=== PATIENT | female | born 1995 | race Caucasian/White ===

== ENCOUNTER 2018-02-07 16:38 | Emergency (ER) | payer OTHER ==
[2018-02-07 17:05] VITALS: BP 135/78
--- NOTE | 2018-02-07 17:13 | ED ---
Lower Extremity - HPI Summary HPI Summary: 22 yr old with left patella pain. Onset today when her 3 year old sat on her crossed legs and her left patella went lateral and superior. The patient states she straightened the leg and the patella moved back in place. She is able to walk and use her leg otherwise as usual. Denies prior patellar dislocations. - History of Current Complaint Chief Complaint: UCLowerExtremity Stated Complaint: LEFT KNEE COMPLAINT Time Seen by Provider: 02/07/18 16:58 Hx Last Menstrual Period: 02/03/18, nexplanon Pain Intensity: 6 - Allergies/Home Medications Allergies/Adverse Reactions: Allergies Allergy/AdvReac Type Severity Reaction Status Date / Time cephalexin [From Keflex] Allergy Swelling Verified 02/07/18 17:01 Penicillins Allergy Hives Verified 02/07/18 17:01 Home Medications: Home Medications Etonogestrel [Nexplanon] 68 mg IMPLANT ONCE 02/07/18 [History Confirmed 02/07/18 ] PMH/Surg Hx/FS Hx/Imm Hx Infectious Disease History: No Infectious Disease History: Denies: Traveled Outside the [place] in Last 30 Days - Family History Known Family History: Positive: None - Social History Alcohol Use: None Substance Use Type: Reports: None Smoking Status (MU): Light Every Day Tobacco Smoker Type: Cigarettes Amount Used/How Often: 1/2 ppd Review of Systems Constitutional: Negative Positive: Other - left knee pain All Other Systems Reviewed And Are Negative: Yes Physical Exam Triage Information Reviewed: Yes Vital Signs On Initial Exam: Initial Vitals Temp Pulse Resp BP Pulse Ox 98.8 F 78 14 135/78 100 02/07/18 16:58 02/07/18 16:58 02/07/18 16:58 02/07/18 16:58 02/07/18 16:58 Vital Signs Reviewed: Yes Appearance: Positive: Well-Appearing, No Pain Distress Skin: Positive: Warm, Skin Color Reflects Adequate Perfusion Head/Face: Positive: Normal Head/Face Inspection Eyes: Positive: EOMI ENT: Positive: Normal ENT inspection Respiratory/Lung Sounds: Positive: Other - normal effort Cardiovascular: Positive: Pulses are Symmetrical in both Upper and Lower Extremities Abdomen Description: Negative: Distended Musculoskeletal: Positive: Normal, Strength/ROM Intact, Other - mild STS lateral to the left patella. No Erythema. She is able to fully extend and flex at the left knee. No patellar tendon tenderness. Neurological: Positive: Sensory/Motor Intact, Alert, Oriented to Person Place, Time, CN Intact II-III, Normal Gait Psychiatric: Positive: Normal - [place] Coma Scale Best Eye Response: 4 - Spontaneous Best Motor Response: 6 - Obeys Commands Best Verbal Response: 5 - Oriented Coma Scale Total: 15 Diagnostics - Vital Signs Vital Signs Temp Pulse Resp BP Pulse Ox 02/07/18 16:58 98.8 F 78 14 135/78 100 - Laboratory Lab Statement: Any lab studies that have been ordered have been reviewed, and results considered in the medical decision making process. - Radiology left knee Xray Interpretation: No Acute Changes Radiology Interpretation Completed By: Radiologist Lower Extremity Course/Dx - Course Course Of Treatment: 22 yr old with left knee pain. Xrays negative. DC home. referral to Ortho as needed. - Diagnoses Provider Diagnoses: Left knee sprain Discharge - Discharge Plan Condition: Good Disposition: HOME Prescriptions: Ibuprofen TAB* [Motrin TAB* 600 MG] 600 mg PO Q8H PRN #14 tab PRN Reason: Pain Patient Education Materials: Knee Sprain (ED) Referrals: Liliana Nicole CNM [Primary Care Provider] - 2 Days Drake Hawley MD [Medical Doctor] -
--- NOTE | 2018-02-07 18:21 | RAD ---
INDICATION: Left knee injury COMPARISON: None TECHNIQUE: AP, lateral, tunnel, and sunrise views were obtained. FINDINGS: The bony structures, joint spaces, and soft tissues are normal for age. IMPRESSION: NEGATIVE EXAMINATION
== END 2018-02-07 18:32 | disposition home or self-care (01) ==
LOC: UCCORT 16:38
DX: S83.92XA Sprain of unspecified site of left knee, initial encounter (principal); X50.0XXA Overexertion from strenuous movement or load, initial encounter; X50.1XXA Overexertion from prolonged static or awkward postures, initial encounter; Y93.89 Activity, other specified; Y92.9 Unspecified place or not applicable; Z88.1 Allergy status to other antibiotic agents; Z88.0 Allergy status to penicillin; F17.210 Nicotine dependence, cigarettes, uncomplicated
CPT/HCPCS: 99202; G0463

== ENCOUNTER 2019-08-29 11:21 | Emergency (ER) | payer OTHER ==
[2019-08-29 11:34] VITALS: BP 140/83
[2019-08-29] MEDS ORDERED: predniSONE TAB* 20 MG PO ONE (11:42)
--- OUTSIDE RECORDS SUMMARY | 2019-08-29 11:50 | XMS REPORT | Continuity of Care Document ---
:1995 External Reference #:[id number] Author Name Augusto Whitt MD Address [address] [place] [address] Care Team Providers Name Role Phone Colton De Anda MD - Obstetrics & Care Team Information Media Relations Coordinator Gynecology Problems Description No Information Available Social History Type Date Description Comments Sex Unknown Smokeless Tobacco Never Used Smokeless Tobacco ETOH Use Occasionally consumes alcohol Tobacco Use Start: Unknown Patient is a current smoker, smokes every day Recreational Drug Use Denies Drug Use Smoking Status Reviewed: 08/10/19 Patient is a current smoker, smokes every day Allergies, Adverse Reactions, Alerts Active Allergies Reaction Severity Comments Date Penicillin Facial swelling 06/01/2019 Cephalexin 08/10/2019 Medications Active Medications SIG Qnty Indications Ordering Provider Date Colace 1 by mouth bid Unknown 100mg Capsules Ferrous Sulfate Iron 1 by mouth every Unknown day 200(65Fe) mg Tablets Calcium 600+D High 1 po daily Unknown Potency [id number] Tablets Nexplanon implant Unknown 68mg Implant Immunizations CPT Code Status Date Vaccine Lot # [id number] Given 07/08/2009 Gardasil [id number] Given 09/14/2008 Gardasil 89694 Given 07/12/2008 Tdap injection 73761 Given 07/12/2008 Gardasil Vital Signs Date Vital Result Comment 08/10/2019 11:44am BP Systolic Sitting Left Arm 124 mmHg BP Diastolic Sitting Left Arm 78 mmHg Body Temperature 99.7 F Heart Rate 98 /min Respiratory Rate 16 /min Height 65 inches 5'5" Weight 114.00 lb BMI (Body Mass Index) 19.0 kg/m2 BSA (Body Surface Area) 1.56 m2 Byron body weight in kilograms 57 kg O2 % BldC Oximetry 100 % Ra Results Description No Information Available Procedures Date Code Description Status 08/10/2019 37190 Anoscopy Completed 08/10/2019 64405 Hemorrhoidectomy, single ligature Completed Medical Devices Description No Information Available Encounters Description No Information Available Assessments Date Code Description Provider 08/10/2019 K64.1 Second degree hemorrhoids Augusto Whitt MD Plan of Treatment 08/10/2019 - Augusto Whitt MDK64.1 Second degree hemorrhoidsComments:repeat banding in 2-3 weeksstart fiber Functional Status Description No Information Available Mental Status Description No Information Available Referrals Description No Information Available
--- NOTE | 2019-08-29 11:54 | UC ---
Throat Pain/Nasal Humphrey HPI - HPI Summary HPI Summary: facial swelling, tightness in her throat x 3 days had dental procedure done last week , was placed of Clinda started having chest tightness, sob, throat tightness and swelling of her face and ext. + rash no fever, no chills, + white tongue and tongue pain - History of Current Complaint Chief Complaint: UCAllergicReaction Stated Complaint: ALLERGIC REACTION Time Seen by Provider: 08/29/19 11:32 Hx Obtained From: Patient Hx Last Menstrual Period: 07/30/19 ?: No Onset/Duration: Gradual Onset, Lasting Days - 3, Still Present Severity: Moderate Pain Intensity: 6 Cough: None Associated Signs & Symptoms: Positive: Rash. Negative: Dysphagia, FB Sensation , Drooling, Wheezing, Hoarseness, Sinus Discomfort, Nasal Discharge, Fever, Vomiting - Allergies/Home Medications Allergies/Adverse Reactions: Allergies Allergy/AdvReac Type Severity Reaction Status Date / Time cephalexin [From Keflex] Allergy Swelling Verified 02/07/18 17:01 clindamycin Allergy Swelling Verified 08/29/19 11:25 Of Face,Lips,& Throat Penicillins Allergy Hives Verified 02/07/18 17:01 Home Medications: Home Medications Clindamycin HCl 300 mg PO Q6H 08/29/19 [History Confirmed 08/29/19] diPHENhydraMINE PO* [Benadryl PO 25 MG TAB*] 50 mg PO Q6H PRN 08/29/19 [History Confirmed 08/29/19] diphenhydrAMINE HCl [Benadryl Allergy 25 MG CAP] 75 mg PO ONCE PRN 08/29/19 [ History Confirmed 08/29/19] PMH/Surg Hx/FS Hx/Imm Hx Previously Healthy: Yes - Surgical History Surgical History: None - Family History Known Family History: Positive: None Negative: Diabetes - Social History Alcohol Use: Occasionally Substance Use Type: None Smoking Status (MU): Light Every Day Tobacco Smoker Type: Cigarettes Amount Used/How Often: 2 cigarettes daily Review of Systems All Other Systems Reviewed And Are Negative: Yes Constitutional: Positive: Negative Skin: Positive: Rash Eyes: Positive: Negative ENT: Positive: Sore Throat Respiratory: Positive: Shortness Of Breath. Negative: Cough Cardiovascular: Negative: Chest Pain Is Patient Immunocompromised?: No Physical Exam Triage Information Reviewed: Yes Appearance: No Pain Distress, Well-Nourished Vital Signs: Initial Vital Signs Temp 99.9 F 08/29/19 11:27 Pulse 118 08/29/19 11:27 Resp 20 08/29/19 11:27 BP 140/83 08/29/19 11:27 Pulse Ox 100 08/29/19 11:27 Vital Signs Reviewed: Yes Eye Exam: Normal Eyes: Positive: Conjunctiva Clear ENT: Positive: Normal ENT inspection, Hearing grossly normal, Pharynx normal, TMs normal, Other - oral thrush. Negative: Pharyngeal erythema, Nasal congestion, Nasal drainage, TM bulging, Tonsillar swelling, Tonsillar exudate, Trismus Neck: Positive: Supple, Nontender, No Lymphadenopathy Respiratory: Positive: Chest non-tender, Lungs clear, Normal breath sounds Cardiovascular: Positive: No Murmur, Tachycardia Abdominal Exam: Normal Abdomen Description: Positive: Nontender, Soft. Negative: CVA Tenderness (R), CVA Tenderness (L), Distended, Guarding Bowel Sounds: Positive: Present Skin Exam: Normal UC Physical Exam Vital Signs On Initial Exam: Initial Vitals Temp Pulse Resp BP Pulse Ox 99.9 F 118 20 140/83 100 08/29/19 11:27 08/29/19 11:27 08/29/19 11:27 08/29/19 11:27 08/29/19 11:27 - Leg/Knee Exam Legs: bilateral leg: swelling - lower ext. +1 demema Throat Pain/Nasal Course/Dx - Differential Dx/Diagnosis Provider Diagnosis: Allergic reaction due to antibacterial drug, Oral thrush, Peripheral edema Discharge ED - Sign-Out/Discharge Documenting (check all that apply): Patient Departure All imaging exams completed and their final reports reviewed: No Studies - Discharge Plan Condition: Stable Disposition: HOME Prescriptions: Nystatin SUSPENSION* 5 ml PO QID #140 ml predniSONE TAB* [Deltasone 20 MG TAB*] 40 mg PO DAILY #8 tab Patient Education Materials: Oral Candidiasis (ED), Antibiotic Medication Allergy (ED) Referrals: Liliana Nicole CNM [Certified Nurse Process Validation Engineer] - 5 Days - Billing Disposition and Condition Condition: STABLE Disposition: Home
[2019-08-29 20:02] LABS: Albumin 4.4 g/dL (3.2-5.2); Albumin/Globulin Ratio 2.1 (1-3); BUN/Creatinine Ratio 17.5 (8-20); Calcium 9.1 mg/dL (8.6-10.3); EGFR African American 138.2 (>60); EGFR Non-African American 114.2 (>60); Globulin 2.1 g/dL (2-4); Potassium 3.5 mmol/L (3.5-5.0); Total Bilirubin 0.6 mg/dL (0.2-1.0); Total Protein 6.5 g/dL (6.4-8.9)
== END 2019-08-29 11:59 | disposition home or self-care (01) ==
LOC: UCCORT 11:21
DX: T36.8X5A Adverse effect of other systemic antibiotics, initial encounter (principal); B37.0 Candidal stomatitis; R60.9 Edema, unspecified; F17.210 Nicotine dependence, cigarettes, uncomplicated; Z88.1 Allergy status to other antibiotic agents; Z88.0 Allergy status to penicillin; Y92.9 Unspecified place or not applicable
CPT/HCPCS: 36415; 80053; 99212; G0463; J7512